=== PATIENT | male | born 1970 | race Hispanic/Latino ===

== ENCOUNTER 2020-03-03 18:51 | Emergency (ER) | payer BC ==
[~2020-03-03] VITALS: Ht 165.1 cm; Wt 81.2 kg
[2020-03-03] MEDS ORDERED: CLONIDINE HCL 0.2 MG TAB PO ONE (19:15)
[2020-03-03] MEDS ORDERED: LISINOPRIL20 MG PO (19:21)
== END 2020-03-03 19:50 | disposition home or self-care (01) ==
LOC: FSED 18:51
DX: I10 Essential (primary) hypertension (principal); M54.2 Cervicalgia
CPT/HCPCS: 99282